=== PATIENT | female | born 1990 | race Two or more races ===

== ENCOUNTER 2023-12-19 17:40 | Emergency (ER) | payer MEDICAID ==
[~2023-12-19] VITALS: Ht 172.7 cm; Wt 53.5 kg
[2023-12-19 19:35] LABS: BASOPHILS % (AUTO) 0.7 % (0.0-2.0); EOSINOPHILS # (AUTO) 0.1 K/uL (0.0-0.7); EOSINOPHILS % (AUTO) 1.4 % (0.0-7.0); HEMATOCRIT 40.8 % (31.2-41.9); HEMOGLOBIN 13.7 g/dL (10.9-14.3); LYMPHOCYTES % (AUTO) 40.7 % (20.5-51.5); MEAN CORPUSCULAR HEMOGLOBIN 33.3 uug (24.7-32.8); MEAN CORPUSCULAR HGB CONC 34 g/dL (32.3-35.6); MEAN CORPUSCULAR VOLUME 99.5 fL (75.5-95.3); MONOCYTES # (AUTO) 0.3 K/uL (0.1-1.30); MONOCYTES % (AUTO) 6.8 % (0.0-11.0); NEUTROPHILS # (AUTO) 2.5 K/uL (1.8-8.9); NEUTROPHILS % (AUTO) 50.4 % (38.5-71.5); PLATELET COUNT (AUTO) 211 K/uL (179-408)
[2023-12-19 19:44] LABS: AMMONIA 24 umol/L (11-32)
[2023-12-19 19:45] LABS: CALCIUM 8.3 mg/dL (8.5-10.1); CARBON DIOXIDE 24 mmol/L (21-32); CHLORIDE 105 mmol/L (98-107); CREATININE 0.6 mg/dL (0.6-1.3); GLUCOSE 93 mg/dL (74-106); POTASSIUM 3.7 mmol/L (3.5-5.1); SODIUM SERUM 143 mmol/L (136-145); UREA NITROGEN, BLOOD 12 mg/dL (7-18)
[2023-12-19 19:48] LABS: ETHANOL < 3 MG/DL (0-10)
[2023-12-19 19:52] LABS: ALANINE AMINOTRANSFERASE 14 U/L (14-59); ALBUMIN 4.1 g/dL (3.4-5.0); ALKALINE PHOSPHATASE 55 U/L (50-136); ASPARTATE AMINOTRANSFERASE 10 U/L (15-37); BILIRUBIN,DIRECT 0.2 mg/dL (0.0-0.2); BILIRUBIN,TOTAL 0.6 mg/dL (0.2-1.0); TOTAL PROTEIN, SERUM 7.8 g/dL (6.4-8.2)
[2023-12-19 19:53] LABS: ACETAMINOPHEN < 2.0 ug/mL (10-30)
[2023-12-19 20:02] LABS: THYROID STIMULATING HORMONE 0.462 mIU/mL (0.358-3.740)
[2023-12-19 20:05] LABS: *BILIRUBIN,URIN NEGATIVE (NEGATIVE); *BLOOD, URINE 1+ (NEGATIVE); *CLARITY,URINE CLEAR (CLEAR); *COLOR,URINE YELLOW (YELLOW); *KETONES,URINE NEGATIVE (NEGATIVE); *PROTEIN,URINE 1+ (NEGATIVE); *UROBILINOGEN,URINE 0.2 E.U./dl (NORMAL); LEUKOCYTE ESTERASE ,URINE TRACE (NEGATIVE); NITRITE, URINE NEGATIVE (NEGATIVE); UGLUCOSE NEGATIVE (NEGATIVE)
[2023-12-19 20:08] LABS: *URINE HCG, QUAL NEGATIVE (NEGATIVE)
[2023-12-19 20:17] LABS: *AMPHETAMINE, URINE NEGATIVE (NEGATIVE); *BARBITURATE, URINE NEGATIVE (NEGATIVE); *BENZODIAZEPINE, URINE NEGATIVE (NEGATIVE); *CANNABINOID, URINE NEGATIVE (NEGATIVE); *COCCAINE, URINE NEGATIVE (NEGATIVE); *OPIATE, URINE NEGATIVE (NEGATIVE); *PHENCYCLIDINE SCREEN,URINE NEGATIVE (NEGATIVE); BACTERIA,URINE FEW /HPF (NONE SEEN); FENTANYL, URINE NEGATIVE (NEGATIVE); SQUAMOUS EPITHELIAL CELL,UR MODERATE /HPF (NONE SEEN)
[2023-12-19] MEDS: OLANZAPINE 5 MG TABLET PO ONE (20:50)
[2023-12-19] MEDS ORDERED: OLANZAPINE 5 MG TABLET ONE (20:52)
[2023-12-19] MEDS ORDERED: OLAN10TA3 PO (23:36)
[2023-12-19 23:44] VITALS: BP 111/68; TEMP 98.1; O2SAT 98
== END 2023-12-19 23:45 | disposition home or self-care (01) ==
LOC: ER 17:44
DX: F23 Brief psychotic disorder (principal); R10.2 Pelvic and perineal pain; F32.A Depression, unspecified; E03.9 Hypothyroidism, unspecified; Z79.899 Other long term (current) drug therapy; Z20.822 Contact with and (suspected) exposure to COVID-19; Z60.2 Problems related to living alone
CPT/HCPCS: 36415; 70030-TC; 84443; 84480; 84484; 84703; 85025; 85730; 93005; A4606; A4663; G0480